=== PATIENT | male | born 1995 | race Caucasian/White ===

== ENCOUNTER 2016-12-04 06:51 | Emergency (ER) | payer OTHER ==
[~2016-12-04] VITALS: Ht 170.2 cm; Wt 66.6 kg
[2016-12-04 06:53] VITALS: TEMP 36.3; O2SAT 98; Ht 170.2 cm; Wt 66.6 kg
[2016-12-04] MEDS ORDERED: MULT-506 PO (07:06)
[2016-12-04 07:20] LABS: HEMATOCRIT 47.5 % (42-52); MEAN CELL VOLUME 89.6 fL (80-100); MEAN CORPUSCULAR HEMOGLOBIN 31.9 pg (25-34); MEAN CORPUSCULAR HGB CONC 35.6 g/dl (32-36); MEAN PLATELET VOLUME 8.6 fL (7.4-10.4); PLATELET COUNT 204 K/uL (130-400); WHITE BLOOD COUNT 4.07 K/uL (4.8-10.8)
[2016-12-04 07:32] LABS: URINE APPEARANCE CLEAR (CLEAR); URINE BILIRUBIN NEG (NEG); URINE COLOR YELLOW; URINE NITRITE NEG (NEG); URINE PH 5.5 (4.5-7.5); URINE SPECIFIC GRAVITY 1.025 (1.000-1.030); UROBILINOGEN NEG (NEG); ZZUR CULT IF INDIC CLEAN CATCH NO
[2016-12-04 07:38] LABS: BUN/CREATININE RATIO 17.8 (10-20); CALCIUM 9.2 mg/dl (8.5-10.1); POTASSIUM 3.9 mmol/L (3.5-5.1)
[2016-12-04 08:10] LABS: MANUAL MICROSCOPIC REQUIRED? NO; REVIEW REQ? NO
--- NOTE | 2016-12-04 08:32 | EMERGENCY ROOM VISIT NOTE ---
History Report prepared by Aundrea: Claudia Bains Under the Supervision of: Dr. Keyon Back M.D. First contact with patient: 06:58 Chief Complaint: ABDOMINAL PAIN Stated Complaint: STOMACH PAIN WHEN STANDING UP STRAIGHT History of Present Illness The patient is a 21 year old male who presents to the Emergency Room with complaints of constant abdominal pain for the past 2 hours. The patient woke up this morning with pain in the middle of his abdomen. He reports that his pain is much worse with standing, and somewhat alleviated with bending over. His pain has started to improve over the last 15 minutes, and he rates his current pain as a 7/10 in severity. He has been passing gas today. He had a bowel movement this morning after his pain started, but it did not alleviate any of his pain. The patient denies urinary symptoms, nausea, vomiting, diarrhea, fever , headache, chills, numbness, and any pain in his extremities. He has been eating normally. He has an inguinal hernia but is not having pain in this area. The patient has never experienced symptoms like this before. Source of History: patient Onset: 2 hours [employer] Position: abdomen Symptom Intensity: 7/10 Timing: constant Modifying Factors (Worsening): other (standing) Modifying Factors (Relieving): other (bending over) Associated Symptoms: No chills, No diarrhea, No fevers, No headache, No nausea, No numbness, No urinary symptoms, No vomiting Review of Systems All systems have been listed, reviewed, and are negative other than those previously mentioned. Please see Additional Medical History Sheet. Past Medical & Surgical Medical Problems: (1) No significant active problems Family History Patient reports no known family medical history. Social History Smoking Status: Never Smoker Alcohol Use: none Drug Use: none Housing Status: lives with family Current/Historical Medications Scheduled Multivitamin (Multivitamin), 1 TAB PO DAILY Allergies Coded Allergies: No Known Allergies (Unverified , 12/04/16) Physical Exam Vital Signs Date Time Temp Pulse Resp B/P Pulse Ox O2 Delivery O2 Flow Rate FiO2 12/04/16 08:53 69 18 112/54 12/04/16 06:53 36.3 75 16 110/69 98 Room Air Physical Exam GENERAL: Patient awake, alert, oriented x 3. Patient follows commands. Patient does not appear toxic. Patient is adequately hydrated and well- nourished. SKIN: No erythema, pallor, cyanosis or rash HEENT: Normal head, pupils equal, reactive to light and accommodation. LUNGS: Clear to auscultation. No wheezes, no rales, no rhonchi. HEART: No murmurs. No gallops. No rubs ABDOMEN: No masses, no rebound, no hepatomegaly or splenomegaly. EXTREMITIES: No signs of trauma or infection. NEUROLOGIC: Cranial nerves II-XII within normal limits. No gross motor sensory function deficits. Medical Decision & Procedures Laboratory Results 12/04/16 07:10 12/04/16 07:10 Test 12/04/16 07:10 Red Blood Count 5.30 M/uL (4.7-6.1) Mean Corpuscular Volume 89.6 fL (80-100) Mean Corpuscular Hemoglobin 31.9 pg (25-34) Mean Corpuscular Hemoglobin Concent 35.6 g/dl (32-36) RDW Standard Deviation 40.8 fL (36.4-46.3) RDW Coefficient of Variation 12.4 % (11.5-14.5) Mean Platelet Volume 8.6 fL (7.4-10.4) Urine Color YELLOW Urine Appearance CLEAR (CLEAR) Urine pH 5.5 (4.5-7.5) Urine Specific [place] 1.025 (1.000-1.030) Urine Protein NEG (NEG) Urine Glucose (UA) NEG (NEG) Urine Ketones NEG (NEG) Urine Occult Blood NEG (NEG) Urine Nitrite NEG (NEG) Urine Bilirubin NEG (NEG) Urine Urobilinogen NEG (NEG) Urine Leukocyte Esterase NEG (NEG) Anion Gap 5.0 mmol/L (3-11) Est Creatinine Clear Calc Drug Dose 110.2 ml/min Estimated GFR () 125.0 Estimated GFR (Non- 107.9 BUN/Creatinine Ratio 17.8 (10-20) Calcium Level 9.2 mg/dl (8.5-10.1) Total Bilirubin 1.0 mg/dl (0.2-1) Direct Bilirubin 0.2 mg/dl (0-0.2) Aspartate Amino Transf (AST/SGOT) 24 U/L (15-37) Alanine Aminotransferase (ALT/SGPT) 35 U/L (12-78) Alkaline Phosphatase 68 U/L (45-117) Total Protein 7.6 gm/dl (6.4-8.2) Albumin 4.3 gm/dl (3.4-5.0) Laboratory results as stated above per my review. ED Course 0658: Past medical records reviewed. The patient was evaluated in room A3. A complete history and physical examination was performed. 0821: I reassessed the patient at this time. He is feeling better and resting comfortably. I discussed the results and treatment plan with the patient. I answered all pertaining questions that he had. He expressed understanding and verbalized agreement. The patient will be discharged home. Medical Decision Differential diagnoses includes musculoskeletal pain, intestinal spasm, Crohn's Disease, diverticulitis, appendicitis. Patient is here with sudden onset of abdominal pain which resolved prior to arrival. Labs were evaluated. Please see above. His white count is not elevated. Urinalysis is unrevealing. The patient was observed and ultimately discharged. Most likely he has some intestinal spasm which has since resolved. I do not believe the patient requires any further testing at this time. He was reassured. The patient is to return here if pain recurs. Impression Primary Impression: Spasm of bowel Scribe Attestation The scribe's documentation has been prepared under my direction and personally reviewed by me in its entirety. I confirm that the note above accurately reflects all work, treatment, procedures, and medical decision making performed by me. Departure Information Dispostion Home / Self-Care Referrals No Doctor, Assigned (PCP) Forms HOME CARE DOCUMENTATION FORM, IMPORTANT VISIT INFORMATION Patient Instructions My [facility] Additional Instructions Increase fluid intake over the next 24 hours. Return here if the pain recurs and is not going away. Follow-up with a family physician within the next 2 weeks.
[2016-12-04 08:53] VITALS: BP 112/54; PULSE 69
== END 2016-12-04 08:54 | disposition home or self-care (01) ==
LOC: C.EDB 06:53 → C.EDA 08:54
DX: R25.2 Cramp and spasm (principal)